=== PATIENT | female | born 1995 | race Caucasian/White ===

== ENCOUNTER 2019-09-02 11:27 | Inpatient (IN) | payer OTHER ==
[~2019-09-02] VITALS: Ht 149.9 cm; Wt 71.2 kg
[2019-09-02] MEDS ORDERED: LACTATED RINGERS 1,000 ML IV SCH (11:45)
[2019-09-02] MEDS ORDERED: METOCLOPRAMIDE 10 MG/2 ML INJ VIAL IVP SCH (11:51)
[2019-09-02] MEDS ORDERED: CITRIC ACID/SODIUM CITRATE 30 ML UDC PO SCH (11:51)
[2019-09-02 12:50] LABS: APPEARANCE,URINE CLOUDY (CLEAR); BASOPHILS % (AUTO) 0.2 % (0.0-2.0); BILIRUBIN,URINE 1+ (NEGATIVE); BLOOD, URINE NEGATIVE (NEGATIVE); COLOR,URINE YELLOW (YELLOW); EOSINOPHILS # (AUTO) 0.2 K/uL (0-0.4); EOSINOPHILS % (AUTO) 1.3 % (0.0-4.0); HEMATOCRIT 32.2 % (36-48); HEMOGLOBIN 10.4 g/dL (12.0-16.0); LEUKOCYTE ESTERASE ,URINE 1+ (NEGATIVE); LYMPHOCYTES # (AUTO) 2.8 K/uL (2.5-16.5); MEAN CORPUSCULAR HEMOGLOBIN 27 pg (27-31); MEAN CORPUSCULAR HGB CONC 32 g/dL (33-37); MEAN CORPUSCULAR VOLUME 82.3 fL (80-94); MONOCYTES # (AUTO) 0.8 K/uL (0.8-1.0); MONOCYTES % (AUTO) 5.6 % (1.7-9.3); NEUTROPHILS # (AUTO) 10.3 K/uL (1.8-7.7); NEUTROPHILS % (AUTO) 72.9 % (42.2-75.2); NITRITE, URINE NEGATIVE (NEGATIVE); PH,URINE 6.5 (5.0-9.0); PLATELET COUNT (AUTO) 193 K/uL (140-450); RED BLOOD CELL COUNT(AUTO) 3.91 MIL/uL (4.20-5.40); RED CELL DISTRIBUTION WIDTH 14.5 % (11.6-13.7); UGLUCOSE NEGATIVE (NEGATIVE); WHITE BLOOD COUNT (AUTO) 14.1 K/uL (4.8-10.8)
[2019-09-02 12:59] LABS: ANION GAP 16.9 (8-16); CARBON DIOXIDE 19.7 mmol/L (21-32); CREATININE 0.5 mg/dL (0.6-1.3); POTASSIUM 3.6 mmol/L (3.5-5.1)
[2019-09-02 13:03] LABS: PROTHROMBIN TIME 8.5 secs (10.8-13.4)
[2019-09-02 13:05] LABS: ALBUMIN 2.4 g/dL (3.4-5.0); TOTAL BILIRUBIN 0.4 mg/dL (0.0-1.0)
[2019-09-02 13:48] LABS: RBC,URINE NONE SEEN /HPF (0-5)
[2019-09-02] MEDS ORDERED: CITRIC ACID/SODIUM CITRATE 30 ML UDC ONE (13:49)
[2019-09-02] MEDS ORDERED: ONDANSETRON 4 MG/2 ML VIAL ONE (14:00)
[2019-09-02] MEDS ORDERED: MIDAZOLAM 2 MG/2 ML VIAL ONE (14:06)
[2019-09-02] MEDS ORDERED: MORPHINE PRES FREE 10 MG/10 ML AMP IV ONE (14:06)
[2019-09-02] MEDS ORDERED: diphenhydrAMINE 50 MG/ML VIAL IVP PRN ×2 (15:10)
[2019-09-02] MEDS ORDERED: ONDANSETRON 4 MG/2 ML VIAL IVP PRN ×2 (15:10)
[2019-09-02] MEDS ORDERED: HYDROmorphone 1 MG/ML AMP IVP PRN (15:10)
[2019-09-02] MEDS ORDERED: NALOXONE 0.4 MG/ML VIAL IVP PRN ×3 (15:10)
[2019-09-02] MEDS ORDERED: NALBUPHINE 10 MG/ML AMP IVP PRN (15:10)
[2019-09-02] MEDS ORDERED: OXYTOCIN 20 UNITS in LACTATED RINGERS 1,000 ML IV SCH ×2 (15:10→16:58)
[2019-09-02] MEDS ORDERED: MEPERIDINE 25 MG/ML SYR IVP PRN (15:10)
[2019-09-02] MEDS ORDERED: OXYTOCIN 10 UNITS in LACTATED RINGERS 1,000 ML IV SCH (15:11)
[2019-09-02] MEDS ORDERED: MAGNESIUM CITRATE 300 ML BTL PO SCH (15:15)
[2019-09-02] MEDS ORDERED: KETOROLAC 30 MG/ML VIAL IVP PRN (15:15)
[2019-09-02] MEDS ORDERED: BUPRENORPHINE 0.3 MG/ML VIAL IV PRN (15:15)
[2019-09-02] MEDS ORDERED: TEMAZEPAM 15 MG CAP PO PRN (15:15)
[2019-09-02] MEDS ORDERED: oxyCODONE/APAP 5/325 MG 1 TAB TAB PO PRN (15:15)
[2019-09-02] MEDS ORDERED: METHYLERGONOVINE 0.2 MG/ML AMP IM PRN (15:15)
[2019-09-02] MEDS ORDERED: diphenhydrAMINE 50 MG/ML VIAL ONE (15:39)
[2019-09-02] MEDS: OXYTOCIN 20 UNITS/LR PREMIX 1,000 ML IV ONE ×2 (15:42→15:55)
[2019-09-02] MEDS ORDERED: SENNA 8.6 MG TAB PO SCH (21:00)
[2019-09-03] MEDS: KETOROLAC 30 MG/ML VIAL IM/IVP SCH ×2 (01:44→08:49)
[2019-09-03] MEDS ORDERED: OXYTOCIN 20 UNITS/LR PREMIX 1,000 ML IV ONE (07:02)
--- NOTE | 2019-09-03 08:17 | NUR ---
PATIENT HAS BEEN SCREENED AND CATEGORIZED LOW NUTRITION RISK. PATIENT WILL BE SEEN WITHIN 7 DAYS OF ADMISSION. 09/08/[address]
[2019-09-03] MEDS: CALCIUM POLYCARBOPHIL 625 MG TAB PO SCH ×3 (08:58→19:01)
[2019-09-03] MEDS: SIMETHICONE 80 MG TAB.CHEW PO PRN ×3 (08:58→19:01)
[2019-09-03] MEDS: BISACODYL 5 MG TABEC PO SCH (08:58)
[2019-09-03] MEDS: HYDROcodone/APAP 5/325 MG 1 TAB TAB PO PRN ×3 (12:52→21:09)
[2019-09-04] MEDS: HYDROcodone/APAP 5/325 MG 1 TAB TAB PO PRN ×3 (01:11→19:59)
[2019-09-04] MEDS: IBUPROFEN 800 MG TAB PO PRN (06:30)
[2019-09-04] MEDS: CALCIUM POLYCARBOPHIL 625 MG TAB PO SCH ×3 (13:10→21:12)
[2019-09-04] MEDS: SIMETHICONE 80 MG TAB.CHEW PO PRN (13:11)
[2019-09-04] MEDS: BISACODYL 5 MG TABEC PO SCH ×2 (13:11→21:11)
[2019-09-05] MEDS: HYDROcodone/APAP 5/325 MG 1 TAB TAB PO PRN (00:55)
[2019-09-05] MEDS: IBUPROFEN 800 MG TAB PO PRN (09:00)
[2019-09-05] MEDS: BISACODYL 5 MG TABEC PO SCH (09:01)
[2019-09-05] MEDS: CALCIUM POLYCARBOPHIL 625 MG TAB PO SCH ×2 (09:01→13:41)
== END 2019-09-05 14:15 | disposition home or self-care (01) | DRG 540 ==
LOC: MLD 11:27 → MFCC 15:19
PROVIDERS: ADMIT Obstetrics & Gynecology; ATTEND Obstetrics & Gynecology
PROC: 10D00Z1 Extraction of Products of Conception, Low, Open Approach (ICD-10-PCS; principal; 2019-09-02 14:00)
DX: O34.211 Maternal care for low transverse scar from previous cesarean delivery (principal); O77.0 Labor and delivery complicated by meconium in amniotic fluid; Z37.0 Single live birth; Z3A.39 39 weeks gestation of pregnancy
CPT/HCPCS: 36415; 51702; 80053; 81001; 85025; 85610; 85730; 86886; 86900; 86901; 87086; J0690; J1200; J1885; J2250; J2270; J2405; J2590; J7060; J7120

== ENCOUNTER 2020-04-30 21:50 | Emergency (ER) | payer OTHER ==
--- NOTE | 2020-04-30 23:22 | NUR ---
PATIENT LEFT WITHOUT BEING SEEN BY DR. CULP. NO FURTHER CARE PROVIDED FOR PATIENT.
== END 2020-04-30 23:21 | disposition left against medical advice (07) ==
LOC: MED 21:50
DX: Z53.21 Procedure and treatment not carried out due to patient leaving prior to being seen by health care provider (principal)